=== PATIENT | male | born 1955 | race Caucasian/White ===

== ENCOUNTER → 2016-04-16 | Outpatient (CLI) | payer MEDICARE | LOC: M CARPUL 14:09 | PROVIDERS: ATTEND Nurse Practitioner Family | DX: J44.9 Chronic obstructive pulmonary disease, unspecified (principal) ==

== ENCOUNTER → 2016-09-12 | Outpatient (REF) | payer MEDICARE ==
[2016-09-12 17:23] LABS: BASO % 0.7 % (0.0-1.0); EOS # 0.3 K/mm3 (0.0-0.50); EOS % 3.7 % (0.0-3.0); LARGE UNSTAINED CELL # 0.1 K/mm3 (0.0-0.4); LARGE UNSTAINED CELL % 1.4 % (0.0-4.0); LYMPH % 27.7 % (24.0-44.0); MEAN CORPUSCULAR HEMOGLOBIN 33.9 pg (27.0-33.0); MEAN CORPUSCULAR HGB CONC 35.4 g/dl (32.0-36.5); MEAN CORPUSCULAR VOLUME 95.8 fl (80.0-96.0); MONO # 0.4 K/mm3 (0.0-0.8); MONO % 5.5 % (0.0-5.0); NEUTROPHILS # 4.5 K/mm3 (1.8-7.7); NEUTROPHILS % 60.9 % (36.0-66.0); PLATELET COUNT, AUTOMATED 255 k/mm3 (150-450); RED CELL DISTRIBUTION WIDTH 12.2 % (11.5-14.5); WHITE BLOOD COUNT 7.4 K/mm3 (4.0-10.0)
[2016-09-12 18:11] LABS: ALBUMIN 3.6 GM/DL (3.2-5.2); ALBUMIN/GLOBULIN RATIO 1.13 (1.00-1.93); ALKALINE PHOSPHATASE 94 U/L (45-117); ALT/SGPT 34 U/L (12-78); ANION GAP 9 MEQ/L (8-16); AST/SGOT 16 U/L (15-37); BILIRUBIN,TOTAL 0.4 MG/DL (0.2-1.0); BLOOD UREA NITROGEN 14 MG/DL (7-18); CALCIUM LEVEL 8.9 MG/DL (8.8-10.2); CARBON DIOXIDE LEVEL 26 MEQ/L (21-32); CHLORIDE LEVEL 107 MEQ/L (98-107); CHOLESTEROL LEVEL 143 MG/DL (<200); FREE T4 1.29 NG/DL (0.76-1.46); GLOMERULAR FILTRATION RATE > 60.0 (>49); GLUCOSE, FASTING 126 MG/DL (80-110); POTASSIUM SERUM 4.2 MEQ/L (3.5-5.1); SODIUM LEVEL 142 MEQ/L (136-145); TOTAL PROTEIN 6.8 GM/DL (6.4-8.2); TRIGLYCERIDES LEVEL 268 MG/DL (<150)
== END ==
LOC: M SFHCPLAZ 07:22
PROVIDERS: ATTEND Nurse Practitioner Family
DX: K21.9 Gastro-esophageal reflux disease without esophagitis (principal); R73.01 Impaired fasting glucose; E78.5 Hyperlipidemia, unspecified; E03.9 Hypothyroidism, unspecified

== ENCOUNTER → 2017-02-26 | Outpatient (REF) | payer MEDICARE ==
[2017-02-26 16:50] LABS: BASO # 0.1 10^3/uL (0.0-0.2); BASO % 0.5 % (0.0-1.0); EOS # 0.2 10^3/uL (0.0-0.50); EOS % 2.4 % (0.0-3.0); IMMATURE GRANULOCYTE % 0.4 % (0-0); LYMPH # 2.3 10^3/uL (1.5-4.5); LYMPH % 23.8 % (24.0-44.0); MEAN CORPUSCULAR HEMOGLOBIN 31.6 pg (27.0-33.0); MEAN CORPUSCULAR HGB CONC 33.5 g/dl (32.0-36.5); MEAN CORPUSCULAR VOLUME 94.1 fl (80.0-96.0); MONO # 0.7 10^3/uL (0.0-0.8); MONO % 6.9 % (0.0-5.0); NEUTROPHILS # 6.2 10^3/uL (1.8-7.7); PLATELET COUNT, AUTOMATED 280 10^3/uL (150-450); RED CELL DISTRIBUTION WIDTH 12.1 % (11.5-14.5); WHITE BLOOD COUNT 9.4 10^3/uL (4.0-10.0)
[2017-02-26 17:55] LABS: ALBUMIN 3.9 GM/DL (3.2-5.2); ALKALINE PHOSPHATASE 89 U/L (45-117); ALT/SGPT 26 U/L (12-78); ANION GAP 11 MEQ/L (8-16); AST/SGOT 17 U/L (7-37); BILIRUBIN,TOTAL 0.5 MG/DL (0.2-1.0); BLOOD UREA NITROGEN 15 MG/DL (7-18); CALCIUM LEVEL 9.2 MG/DL (8.8-10.2); CARBON DIOXIDE LEVEL 27 MEQ/L (21-32); CHLORIDE LEVEL 105 MEQ/L (98-107); CHOLESTEROL LEVEL 164 MG/DL (<200); CREATININE FOR GFR 0.92 MG/DL (0.70-1.30); FREE T4 1.32 NG/DL (0.76-1.46); GLOMERULAR FILTRATION RATE > 60.0 (>49); GLUCOSE, FASTING 134 MG/DL (80-110); POTASSIUM SERUM 4.2 MEQ/L (3.5-5.1); SODIUM LEVEL 143 MEQ/L (136-145); TOTAL PROTEIN 6.9 GM/DL (6.4-8.2); TRIGLYCERIDES LEVEL 250 MG/DL (<150)
== END ==
LOC: M SFHCCAPE 09:16
PROVIDERS: ATTEND Physician Assistant
DX: J44.9 Chronic obstructive pulmonary disease, unspecified (principal); I10 Essential (primary) hypertension; E03.9 Hypothyroidism, unspecified; E78.5 Hyperlipidemia, unspecified; R91.1 Solitary pulmonary nodule; N40.0 Benign prostatic hyperplasia without lower urinary tract symptoms; F41.9 Anxiety disorder, unspecified; K21.9 Gastro-esophageal reflux disease without esophagitis; M54.5 Low back pain; R73.01 Impaired fasting glucose

== ENCOUNTER → 2017-07-23 | Outpatient (CLI) | payer MEDICARE | LOC: M CLY 09:38 | DX: R06.09 Other forms of dyspnea (principal) | CPT/HCPCS: G0463 ==

== ENCOUNTER → 2017-08-25 | Outpatient (CLI) | payer MEDICARE | LOC: M RAD 10:19 | DX: Z12.2 Encounter for screening for malignant neoplasm of respiratory organs (principal); R91.8 Other nonspecific abnormal finding of lung field; Z87.891 Personal history of nicotine dependence | CPT/HCPCS: G0297 ==

== ENCOUNTER → 2018-02-03 | Outpatient (CLI) | payer MEDICARE ==
[~2018-02-03] MED LIST: METHACHOLINE KIT (J7674) INH
== END ==
LOC: M CARPUL 10:42
DX: R06.00 Dyspnea, unspecified (principal)
CPT/HCPCS: J7674

== ENCOUNTER → 2018-05-13 | Outpatient (REF) | payer MEDICARE ==
[2018-05-13 16:34] LABS: BASO # 0.1 10^3/uL (0.0-0.2); BASO % 0.5 % (0.0-1.0); EOS # 0.3 10^3/uL (0.0-0.50); EOS % 3.3 % (0.0-3.0); HEMATOCRIT 49.2 % (42.0-52.0); HEMOGLOBIN 16.8 g/dl (13.5-17.5); LYMPH # 2.5 10^3/uL (1.5-4.5); LYMPH % 24.6 % (24.0-44.0); MEAN CORPUSCULAR HEMOGLOBIN 32.2 pg (27.0-33.0); MEAN CORPUSCULAR HGB CONC 34.1 g/dl (32.0-36.5); MEAN CORPUSCULAR VOLUME 94.3 fl (80.0-96.0); MONO # 0.7 10^3/uL (0.0-0.8); MONO % 6.8 % (0.0-5.0); NEUTROPHILS # 6.4 10^3/uL (1.8-7.7); NEUTROPHILS % 64.3 % (36.0-66.0); PLATELET COUNT, AUTOMATED 310 10^3/uL (150-450); RED BLOOD COUNT 5.22 10^6/uL (4.30-6.10); WHITE BLOOD COUNT 9.9 10^3/uL (4.0-10.0)
[2018-05-13 16:57] LABS: HEMOGLOBIN A1c 6.7 %
[2018-05-13 17:07] LABS: ALBUMIN 3.9 GM/DL (3.2-5.2); ALT/SGPT 31 U/L (12-78); BILIRUBIN,TOTAL 0.5 MG/DL (0.2-1.0); BLOOD UREA NITROGEN 12 MG/DL (7-18); CALCIUM LEVEL 8.6 MG/DL (8.8-10.2); CARBON DIOXIDE LEVEL 27 MEQ/L (21-32); CHLORIDE LEVEL 105 MEQ/L (98-107); CHOLESTEROL LEVEL 145 MG/DL (<200); CHOLESTEROL RISK RATIO 4.264 (<5); CREATININE FOR GFR 0.92 MG/DL (0.70-1.30); FREE T4 1.38 NG/DL (0.76-1.46); GLOMERULAR FILTRATION RATE > 60.0 (>49); GLUCOSE, FASTING 107 MG/DL (70-100); HDL CHOLESTEROL 34 MG/DL (>40); LDL CHOLESTEROL 61 MG/DL (<100); NON-HDL-C 111 MG/DL; POTASSIUM SERUM 4.2 MEQ/L (3.5-5.1); SODIUM LEVEL 140 MEQ/L (136-145); THYROID STIMULATING HORMONE 0.845 uIU/ML (0.358-3.740); TOTAL PROTEIN 7.1 GM/DL (6.4-8.2); TRIGLYCERIDES LEVEL 248 MG/DL (<150)
== END ==
LOC: M SFHCCAPE 09:48
PROVIDERS: ATTEND Physician Assistant
DX: E78.5 Hyperlipidemia, unspecified (principal); E03.9 Hypothyroidism, unspecified; R73.01 Impaired fasting glucose; N40.0 Benign prostatic hyperplasia without lower urinary tract symptoms
CPT/HCPCS: 80053; 80061; 83036; 84439; 84443; 85025; G0103

== ENCOUNTER → 2018-08-25 | Outpatient (REF) | payer MEDICARE ==
[2018-08-25 17:20] LABS: ALBUMIN 3.5 GM/DL (3.2-5.2); ALT/SGPT 28 U/L (12-78); BILIRUBIN,TOTAL 0.7 MG/DL (0.2-1.0); BLOOD UREA NITROGEN 13 MG/DL (7-18); CALCIUM LEVEL 8.7 MG/DL (8.8-10.2); CARBON DIOXIDE LEVEL 24 MEQ/L (21-32); CHLORIDE LEVEL 106 MEQ/L (98-107); CHOLESTEROL LEVEL 129 MG/DL (<200); CHOLESTEROL RISK RATIO 4.448 (<5); CREATININE FOR GFR 0.96 MG/DL (0.70-1.30); FREE T4 1.49 NG/DL (0.76-1.46); GLOMERULAR FILTRATION RATE > 60.0 (>49); GLUCOSE, FASTING 139 MG/DL (70-100); HDL CHOLESTEROL 29 MG/DL (>40); LDL CHOLESTEROL 42 MG/DL (<100); NON-HDL-C 100 MG/DL; POTASSIUM SERUM 3.8 MEQ/L (3.5-5.1); SODIUM LEVEL 140 MEQ/L (136-145); TOTAL PROTEIN 7.1 GM/DL (6.4-8.2); TRIGLYCERIDES LEVEL 292 MG/DL (<150)
[2018-08-25 17:36] LABS: MALB URINE SIEMENS 47.3 MG/L; MAU/CREAT RATIO 16.9 MCG/MG (0.0-30.0)
== END ==
LOC: M SFHCCAPE 07:25
PROVIDERS: ATTEND Physician Assistant
DX: I10 Essential (primary) hypertension (principal); E03.9 Hypothyroidism, unspecified; E11.69 Type 2 diabetes mellitus with other specified complication; E78.5 Hyperlipidemia, unspecified

== ENCOUNTER → 2018-12-23 | Outpatient (REF) | payer MEDICARE ==
[2018-12-23 16:53] LABS: BASO # 0.1 10^3/uL (0.0-0.2); BASO % 0.7 % (0.0-1.0); EOS # 0.3 10^3/uL (0.0-0.5); EOS % 3.3 % (0.0-3.0); HEMATOCRIT 47.7 % (42.0-52.0); HEMOGLOBIN 16.1 g/dl (13.5-17.5); LYMPH # 1.9 10^3/uL (1.5-5.0); LYMPH % 21.3 % (24.0-44.0); MEAN CORPUSCULAR HEMOGLOBIN 32.6 pg (27.0-33.0); MEAN CORPUSCULAR HGB CONC 33.8 g/dl (32.0-36.5); MEAN CORPUSCULAR VOLUME 96.6 fl (80.0-96.0); MONO # 0.7 10^3/uL (0.0-0.8); MONO % 7.6 % (0.0-5.0); NEUTROPHILS % 66.7 % (36.0-66.0); PLATELET COUNT, AUTOMATED 264 10^3/uL (150-450); RED BLOOD COUNT 4.94 10^6/uL (4.30-6.10); WHITE BLOOD COUNT 9.1 10^3/uL (4.0-10.0)
[2018-12-23 17:04] LABS: ALBUMIN 3.7 GM/DL (3.2-5.2); ALT/SGPT 25 U/L (12-78); BILIRUBIN,TOTAL 0.6 MG/DL (0.2-1.0); BLOOD UREA NITROGEN 16 MG/DL (7-18); CALCIUM LEVEL 8.9 MG/DL (8.8-10.2); CARBON DIOXIDE LEVEL 27 MEQ/L (21-32); CHLORIDE LEVEL 105 MEQ/L (98-107); CHOLESTEROL LEVEL 138 MG/DL (<200); CHOLESTEROL RISK RATIO 4.058 (<5); CREATININE FOR GFR 0.95 MG/DL (0.70-1.30); FREE T4 1.24 NG/DL (0.76-1.46); GLOMERULAR FILTRATION RATE > 60.0 (>49); GLUCOSE, FASTING 140 MG/DL (70-100); HDL CHOLESTEROL 34 MG/DL (>40); LDL CHOLESTEROL 54 MG/DL (<100); NON-HDL-C 104 MG/DL; POTASSIUM SERUM 4.2 MEQ/L (3.5-5.1); SODIUM LEVEL 141 MEQ/L (136-145); TOTAL PROTEIN 6.9 GM/DL (6.4-8.2); TRIGLYCERIDES LEVEL 248 MG/DL (<150)
== END ==
LOC: M SFHCCAPE 08:12
PROVIDERS: ATTEND Physician Assistant
DX: E78.5 Hyperlipidemia, unspecified (principal); E03.9 Hypothyroidism, unspecified; E11.69 Type 2 diabetes mellitus with other specified complication

== ENCOUNTER → 2019-02-17 | Outpatient (CLI) | payer MEDICARE ==
--- NOTE | 2019-02-18 13:23 | REP ---
Clinical: Lung screening. History smoking. Comparison: 08/25/2017 Technique: Axial low-dose noncontrast images from the thoracic inlet to the upper abdomen using lung screening technique. Findings: The lung garcia demonstrate stable chronic changes including moderate subpleural fibrosis and areas of scarring. 4 mm density inseparable from the left major fissure remain stable and likely represents focal scar. Small calcified subpleural granulomas are also identified and stable. No acute nodule or mass lesion. No consolidation. No effusion. No pneumothorax. Stable precarinal and paratracheal lymph nodes again identified. Impression: 1. Stable Lung-RAD II examination. Management recommendations include annual low-dose CT evaluation. Impression: Lung-RADS category I. No nodule or suspicious abnormality. Electronically Signed by Kevin Bautista MD 02/18/2019 01:16 P
== END ==
LOC: M RAD 10:08
PROVIDERS: ATTEND Physician Assistant
DX: Z12.2 Encounter for screening for malignant neoplasm of respiratory organs (principal); Z87.891 Personal history of nicotine dependence

== ENCOUNTER → 2019-05-31 | Outpatient (REF) | payer MEDICARE ==
[2019-05-31 16:20] LABS: BASO # 0.1 10^3/uL (0.0-0.2); BASO % 0.5 % (0.0-1.0); EOS # 0.5 10^3/uL (0.0-0.5); EOS % 5.1 % (0.0-3.0); HEMATOCRIT 50.3 % (42.0-52.0); HEMOGLOBIN 16.7 g/dl (13.5-17.5); LYMPH # 2.4 10^3/uL (1.5-5.0); LYMPH % 23.8 % (24.0-44.0); MEAN CORPUSCULAR HEMOGLOBIN 31.4 pg (27.0-33.0); MEAN CORPUSCULAR HGB CONC 33.2 g/dl (32.0-36.5); MEAN CORPUSCULAR VOLUME 94.5 fl (80.0-96.0); MONO # 0.7 10^3/uL (0.0-0.8); NEUTROPHILS # 6.3 10^3/uL (1.5-8.5); NEUTROPHILS % 63.2 % (36.0-66.0); PLATELET COUNT, AUTOMATED 310 10^3/uL (150-450); RED BLOOD COUNT 5.32 10^6/uL (4.30-6.10)
[2019-05-31 16:31] LABS: ALT/SGPT 30 U/L (12-78); BILIRUBIN,TOTAL 0.6 MG/DL (0.2-1.0); BLOOD UREA NITROGEN 12 MG/DL (7-18); CALCIUM LEVEL 8.9 MG/DL (8.8-10.2); CARBON DIOXIDE LEVEL 29 MEQ/L (21-32); CHLORIDE LEVEL 107 MEQ/L (98-107); CHOLESTEROL LEVEL 150 MG/DL (<200); CHOLESTEROL RISK RATIO 4.411 (<5); CREATININE FOR GFR 1.02 MG/DL (0.70-1.30); FREE T4 1.24 NG/DL (0.76-1.46); GLOMERULAR FILTRATION RATE > 60.0 (>49); GLUCOSE, FASTING 128 MG/DL (70-100); HDL CHOLESTEROL 34 MG/DL (>40); LDL CHOLESTEROL 59 MG/DL (<100); NON-HDL-C 116 MG/DL; SODIUM LEVEL 141 MEQ/L (136-145); TOTAL PROTEIN 7.2 GM/DL (6.4-8.2); TRIGLYCERIDES LEVEL 283 MG/DL (<150)
[2019-05-31 16:42] LABS: HEMOGLOBIN A1c 6.4 %
[2019-05-31 16:59] LABS: MALB URINE SIEMENS 23.9 MG/L
== END ==
LOC: M SFHCCAPE 08:40
PROVIDERS: ATTEND Physician Assistant
DX: R73.01 Impaired fasting glucose (principal); E78.5 Hyperlipidemia, unspecified; E03.9 Hypothyroidism, unspecified

== ENCOUNTER → 2019-06-08 | Outpatient (CLI) | payer MEDICARE ==
--- NOTE | 2019-06-08 10:59 | REP ---
Right hip series: Two views. History: Right hip pain. Findings: AP and frog-leg views of the right hip show smooth rounded femoral head and intact hip joint space. Periarticular soft tissues are unremarkable. No bony erosive or destructive lesion. Impression: Negative right hip radiographs. Electronically Signed by Bam Stoddard MD 06/08/2019 10:50 A
--- NOTE | 2019-06-08 11:01 | REP ---
Lumbar spine series: Five views. History: Low back pain. Findings: Lumbar vertebral body heights are preserved. Alignment is normal. There is diffuse degenerative disc disease with discogenic spurring at each level. Disc spaces are preserved except at L1-2 where there is disc space narrowing. Vascular calcification is noted in a normal caliber aorta and iliac vessels. There is no evidence of spondylolysis or spondylolisthesis. There is some SI joint sclerosis bilaterally at L5-S1. Sacrum and SI joints are intact. Psoas margins are symmetric. Impression: Diffuse degenerative spondylosis changes. Osteoarthritic facet changes at L5-S1 bilaterally. Fairly prominent vascular calcification. Electronically Signed by Bam Stoddard MD 06/08/2019 05:44 P
== END ==
LOC: M CLY 10:11
PROVIDERS: ATTEND Physician Assistant
DX: M54.5 Low back pain (principal); M25.551 Pain in right hip; M47.816 Spondylosis without myelopathy or radiculopathy, lumbar region; M51.37 Other intervertebral disc degeneration, lumbosacral region

== ENCOUNTER → 2019-08-20 | Outpatient (REF) | payer MEDICARE ==
[2019-08-20 13:32] LABS: APPEARANCE, URINE HAZY (CLEAR); BACTERIA, URINE AUTO NEGATIVE (NEGATIVE); BILIRUBIN, URINE AUTO NEGATIVE (NEGATIVE); BLOOD, URINE BLOOD NEGATIVE (NEGATIVE); COLOR, URINE YELLOW (YELLOW); GLUCOSE, URINE (UA) AUTO NEGATIVE (NEGATIVE); KETONE, URINE AUTO NEGATIVE (NEGATIVE); LEUKOCYTE ESTERASE, URINE AUTO NEGATIVE (NEGATIVE); NITRITE, URINE AUTO NEGATIVE (NEGATIVE); PROTEIN, URINE AUTO NEGATIVE (NEGATIVE); RBC, URINE AUTO 2 /HPF (0-3); SPECIFIC GRAVITY URINE AUTO 1.019 (1.002-1.035); SQUAMOUS EPITHELIAL CELL UR AU 0 /HPF (0-6); UROBILINOGEN, URINE AUTO 0.2 mg/dL (0.0-2.0); WBC, URINE AUTO 2 /HPF (0-3)
== END ==
LOC: M SMT 13:07
PROVIDERS: ATTEND Nurse Practitioner Family
DX: R35.0 Frequency of micturition (principal)

== ENCOUNTER → 2019-09-10 | Outpatient (CLI) | payer MEDICARE ==
--- NOTE | 2019-09-11 07:58 | REP ---
BILATERAL LOWER EXTREMITY DUPLEX DOPPLER ARTERIAL ULTRASOUND: Real-time ultrasound evaluation and duplex Doppler interrogation of bilateral lower extremity arterial systems is performed. PUNEET right is 1.0 and left 1.1. There is mild scattered plaquing diffusely bilaterally. There is no duplex Doppler sonographic evidence of significant stenosis bilaterally. Triphasic waveforms are seen diffusely bilaterally. There are biphasic waveforms in the profunda bilaterally. PEAK SYSTOLIC VELOCITY RIGHT LEFT Common femoral artery 159.5 cm/s 131.6 cm/s Profunda 128.5 161.9 SFA 132.3 137.8 Popliteal 71.9 72.6 Proximal STEVIE 58.7 42.6 Tibial/peroneal trunk 73.8 41.0 Proximal GOLD LEAF LAYER 61.6 48.3 Distal GOLD LEAF LAYER 87.8 80.5 Distal STEVIE 79.9 54.1 Electronically Signed by Natalio Garrett MD 09/11/2019 09:31 P
== END ==
LOC: M RAD 12:56
PROVIDERS: ATTEND Physician Assistant
DX: I70.203 Unspecified atherosclerosis of native arteries of extremities, bilateral legs (principal)

== ENCOUNTER → 2019-12-08 | Outpatient (REF) | payer MEDICARE ==
[2019-12-08 14:48] LABS: ALBUMIN 3.8 GM/DL (3.2-5.2); ALT/SGPT 26 U/L (12-78); BILIRUBIN,TOTAL 0.4 MG/DL (0.2-1.0); BLOOD UREA NITROGEN 15 MG/DL (7-18); CARBON DIOXIDE LEVEL 27 MEQ/L (21-32); CHLORIDE LEVEL 107 MEQ/L (98-107); CHOLESTEROL LEVEL 124 MG/DL (<200); CHOLESTEROL RISK RATIO 3.757 (<5); CREATININE FOR GFR 0.87 MG/DL (0.70-1.30); GLOMERULAR FILTRATION RATE > 60.0 (>49); GLUCOSE, FASTING 117 MG/DL (70-100); HDL CHOLESTEROL 33 MG/DL (>40); LDL CHOLESTEROL 55 MG/DL (<100); NON-HDL-C 91 MG/DL; POTASSIUM SERUM 4.8 MEQ/L (3.5-5.1); PROSTATIC SPECIFIC AG MONITOR 2.11 NG/ML (< 4.00); SODIUM LEVEL 141 MEQ/L (136-145); TOTAL PROTEIN 6.9 GM/DL (6.4-8.2); TRIGLYCERIDES LEVEL 180 MG/DL (<150)
[2019-12-08 15:36] LABS: HEMOGLOBIN A1c 6.2 %
== END ==
LOC: M LABDRAWC 09:15
PROVIDERS: ATTEND Physician Assistant
DX: I10 Essential (primary) hypertension (principal); Z12.5 Encounter for screening for malignant neoplasm of prostate; N40.0 Benign prostatic hyperplasia without lower urinary tract symptoms; Z79.899 Other long term (current) drug therapy

== ENCOUNTER → 2020-01-18 | Outpatient (CLI) | payer MEDICARE ==
--- NOTE | 2020-01-21 16:18 | REP ---
BILATERAL DIAGNOSTIC MAMMOGRAPHY WITH CAD, 3D TOMOGRAPHY, AND FOCUSED BILATERAL SUBAREOLAR SONOGRAPHY HISTORY: Pain in the right breast. Subareolar lump in the right breast the size of a time present x6 weeks. Positive family history of breast carcinoma. COMPARISON BREAST IMAGING: None. TECHNIQUE: Routine views of each breast are obtained. A skin marker is affixed to the skin at the site of the palpable lump in the right breast, which projects in the upper outer quadrant anteriorly. Magnified focal spot compression true ML and CC views of the right breast are obtained. FINDINGS: There is a mild pattern of non-mass like subareolar fibroglandular tissue in the breasts bilaterally, right more so than left, consistent with gynecomastia. No spiculation, mass, architectural distortion, or skin thickening is seen. SONOGRAPHIC FINDINGS: Bilateral subareolar sonography demonstrates hypoechoic tissue in the retroareolar region on the right corresponding to the area of the palpable lump consistent with fibroglandular tissue. This area measures 9 mm in greatest diameter. Retroareolar scanning on the left shows minimal hypoechoic changes much less prominent. IMPRESSION: BI-RADS Category 2 benign findings. Gynecomastia pattern right breast and to a much lesser extent left subareolar region. Clinical follow-up is advised. BIRADS 2: BI-RADS/ACR category 2 mammogram. Benign findings. 3M patient letter: Male letter M2. Patient reports his clinical breast exam date as 01/17/2020. This mammogram was interpreted with the aid of an FDA approved computer-aided detection device. MERARI
== END ==
LOC: M WHC 07:52
PROVIDERS: ATTEND Physician Assistant
DX: N64.4 Mastodynia (principal); N63.41 Unspecified lump in right breast, subareolar; N62 Hypertrophy of breast
CPT/HCPCS: 76642; 77066; G0279

== ENCOUNTER → 2020-02-28 | Outpatient (REF) | payer MEDICARE | LOC: M PLALAB 12:23 | PROVIDERS: ATTEND Surgery | DX: N62 Hypertrophy of breast (principal) ==

== ENCOUNTER → 2020-08-30 | Outpatient (CLI) | payer MEDICARE ==
--- NOTE | 2020-08-30 16:10 | REP ---
INDICATION: SCREENING FOR LUNG CA. COMPARISON: 02/17/2019. TECHNIQUE: Low dose screening CT chest performed without the use of intravenous contrast. FINDINGS: Lungs: There is moderate diffuse interstitial fibrosis again noted unchanged. No new suspicious nodule is seen. There is scattered tiny calcified granulomas in the right lung. Heart: Not enlarged. Thoracic aorta: No aneurysm. Visualized osseous structures: Unremarkable. IMPRESSION: Category 1 negative low dose noncontrast CT chest. Stable interstitial fibrotic changes. Recommend follow-up exam in 1 year. <Electronically signed by Natalio Garrett > 08/30/20 [id number]
== END ==
LOC: M RAD 13:30
PROVIDERS: ATTEND Physician Assistant
DX: J84.10 Pulmonary fibrosis, unspecified (principal); Z12.2 Encounter for screening for malignant neoplasm of respiratory organs; Z87.891 Personal history of nicotine dependence

== ENCOUNTER → 2021-01-29 | Outpatient (CLI) | payer MEDICARE ==
[~2021-01-29] MED LIST changes: +ASPI81TA26 PO; +BUSP15TA47 PO; +FLOM0.4C39 PO; +FLUO20CA22 PO; +FLUO40CA PO; +GABA600T4 PO; +LEVO25TA5 PO; +LISI-898 PO; -METHACHOLINE KIT (J7674) INH; +MULT1TAB7 PO; +PANT40TA29 PO; +ROSU20TA5 PO; +VERA180T50 PO
== END ==
LOC: M LABSMTC 09:52
PROVIDERS: ATTEND Anesthesiology
DX: Z01.812 Encounter for preprocedural laboratory examination (principal); Z20.822 Contact with and (suspected) exposure to COVID-19

== ENCOUNTER 2021-02-02 10:51 | Day surgery (SDC) | payer MEDICARE ==
[~2021-02-02] VITALS: Ht 177.8 cm; Wt 90.3 kg
[~2021-02-02 10:51] MED LIST changes: +NS 1,000 ML IV ONE; +VERA180T42 PO; -VERA180T50 PO
--- OUTSIDE RECORDS SUMMARY | 2021-02-02 10:58 | CCD ---
Author Author [facility] Organization [facility] Address Unknown Phone Unavailable Care Team Providers Care Wire Brusher Name Role Phone Agapito Barger Unavailable PROBLEMS ALLERGIES No Known Allergies ENCOUNTERS from 1955 to 2020-11-08 IMMUNIZATIONS SOCIAL HISTORY REASON FOR REFERRAL No Information VITAL SIGNS MEDICATIONS PROCEDURES from 1955 to 2020-11-08 RESULTS No Results REASON FOR VISIT MEDICAL (GENERAL) HISTORY Goals Section Health Concerns MEDICAL EQUIPMENT No Information MENTAL STATUS FUNCTIONAL STATUS ASSESSMENTS PLAN OF TREATMENT Insurance Providers
--- OUTSIDE RECORDS SUMMARY | 2021-02-02 10:58 | CCD ---
Author Author [facility] Organization [facility] Address Unknown Phone Unavailable Care Team Providers Care Senior Pensions Administrator Name Role Phone Catherine Lynch Unavailable PROBLEMS Type Condition ICD9-CM Code [id number] Code Onset Dates Condition S tatus W/U Status Risk SNOMED Code Notes Problem HTN (hypertension) I10 Active confirmed 3 7089067 Problem Anxiety F41.9 Active confirmed 00988966 Problem Enlarged prostate without lower urinary tract symptoms N40.0 Active confirmed 673671949 Problem Impaired fasting glucose R73.01 Active confirmed 012865798 Problem Gastroesophageal reflux disease, esophagitis pre sence not specified K21.9 Active confirmed 121759662 Problem Chronic obstructive pulmonary disease, unspecified COPD ty pe J44.9 Active confirmed 91491157 Problem COPD (chronic obstructive pulmonary disease) wit h acute bronchitis J44.0 Active confirmed 348300907038763 Problem Hyperlipidemia E78.5 Active confirmed 87545 004 Problem Pulmonary nodule less than 6 cm determined by computed tomography of lung R91.1 Active confirmed 740903172 Problem Chronic obstructive pulmonar y disease with acute lower respiratory infection J44.0 Active confirmed 050269024 Problem Obesity, unspecified E66.9 Active confirmed 333897011 Problem Type 2 diabetes mellitus with other specified complication E11.69 Active confirmed 67497503 Problem Benign prostatic hyperplasia , unspecified whether lower urinary tract symptoms present N40.0 Active confirmed 355001879 Problem Pulmonary nodule seen on imaging study R91.1 A ctive confirmed 772108562 Problem Diabetes E11.9 Active confirmed 89430973 Problem Basal cell carcinoma (BCC) of left side of nose C4 4.311 Active confirmed 493068943 Problem Pulmonary nodule R91.1 Active confirmed 309 208671 Problem Hypothyroid E03.9 Active confirmed 29560816 Problem GERD (gastroesophageal reflux disease) K21.9 A ctive confirmed 283948529 Problem Benign prostatic hyperplasia with lower urinary tract symptoms N40.1 Active confirmed 291362080 Problem Other obstructive and reflux uropathy N13.8 Ac tive confirmed 93761561 Problem Atherosclerosis of other arteries I70.8 Active con firmed 52432692 Problem Atherosclerosis of aorta I70.0 Active confirmed 300767602 ALLERGIES No Known Allergies ENCOUNTERS from 1955 to 2020-11-23 Encounter Location Date Provider Diagnosis [address] [place] [address] 11 Nov, 2020 Catherineaugust Lynch Anxiety F41.9 ; HTN (hypertension) I10 ; Benign prostatic hyperplasia with lower urinary tract symptoms N40.1 ; Hyperlipidemia E78.5 ; Gastroesophageal reflux disease, esophagitis presence not specified K21.9 ; Hypothyroid E03.9 and Right hip pain M25.551 IMMUNIZATIONS Vaccine Route Administration Date Status Pneumococcal 0.5mL Prevnar 13 IM Intramuscular May 13, 2018 A dministered TD Adult 0.5mL Tetanus IM Intramuscular May 13, 2018 Administ ered Influenza 6mo & up Fluzone Unknown Mar 18, 2016 Other s SOCIAL HISTORY Tobacco Use: Social History Observation Description Date Details (start date - stop date) Former Smoker Sex Assigned At : Social History Observation Description Sex Assigned At Unknown Education: Question Answer Notes Level of Education: College Associates degree in [employer] technology Audit Question Answer Notes Total Score: 1 Interpretation: Alcohol Education Language: Question Answer Notes Languages spoken: Romansh Buddhism: Question Answer Notes Buddhism 33 None Sexual Hx: Question Answer Notes Had sex in the last 12 months (vaginal, oral, or anal)? Yes Have you ever had an STD? No with Women only Use protection? No Drug and Alcohol Question Answer Notes Total Score: 0 Interpretation: No problems reported BMI Care Goal Follow-Up Question Answer Notes Above Normal BMI Follow-Up Lifestyle education regarding t Tobacco Use: Question Answer Notes Are you a: former smoker How long has it been since you last smoked? 5-10 years REASON FOR REFERRAL No Information VITAL SIGNS No information MEDICATIONS Medication SIG (Take, Route, Frequency, Duration) Notes Start Da te End Date Status Aspirin 81 MG 1 tablet Orally Once a day Active Lisinopril 5 MG 1 tablet Orally Once a day for 90 days Active Verapamil HCl ER 180 MG 1 tablet every morning with food Orally Once a day for 90 days Active busPIRone HCl 15 MG 1 tablet Orally once daily for 90 days Active Fluoxetine HCl 20 MG 1 tablet Orally three times daily for 90 days Active Levothyroxine Sodium 25 MCG 1 tablet on an empty stoma ch in the morning Orally Once a day for 90 days Active Rosuvastatin Calcium 20 MG 1 capsule Orally Once a day Not-Taking Flomax 0.4 MG 1 capsule 30 minutes after t he same meal each day Orally Once a day for 90 days Active Gabapentin 600 MG 1 capsule Orally Three times a day for 90 days Jul, Active Pantoprazole Sodium 40 MG 1 cap Orally Daily for 90 days 2 August, Active Centrum Silver 50+Men Act mer Cephalexin 500 MG 1 capsule Orally every 12 hrs for 10 day(s) Oct, Active Crestor 20 MG 1 tablet Orally Once a day for 90 days Active PROCEDURES No Information RESULTS No Results REASON FOR VISIT Refills MEDICAL (GENERAL) HISTORY Type Description Date Medical History kidney stones Medical History mitral valve prolapse Medical History colon polyp Medical History Esophageal reflux Medical History Elevated Cholesterol Medical History Hypothyroidism Medical History depressionn with anxiety Medical History Impaired fasting glucose Medical History Pulmonary nodule. Repeat low dose CT scn due 02/2017 Surgical History VARICOCELE B/L 1984 Surgical History colon polyp removal 1977 Surgical History colonoscopy-Dr. Floyd 2007 Surgical History colonoscopy - Dr. Chaudhary: Polyp removal F/u 3-5 years 2016 Goals Section No Information Health Concerns No Information MEDICAL EQUIPMENT No Information MENTAL STATUS No Information FUNCTIONAL STATUS No Information ASSESSMENTS Encounter Date Diagnosis Assessment Notes Treatment Notes Treatm ent Clinical Notes Nov, Anxiety (ICD-10 - F41.9) Nov, HTN (hypertension) (ICD-10 - I10) Nov, Benign prostatic hyperplasia with lower urinary tract symptoms (ICD-10 - N40.1) Nov, Hyperlipidemia (ICD-10 - E78.5) Nov, Gastroesophageal reflux dise ase, esophagitis presence not specified (ICD-10 - K21.9) Nov, Hypothyroid (ICD-10 - E03.9) Nov, Right hip pain (ICD-10 - M25.551) PLAN OF TREATMENT Medication Medication Name Sig Start Date Stop Date Fluoxetine HCl 20 MG 1 tablet Orally three times daily for 90 da ys Cephalexin 500 MG 1 capsule Orally every 12 hrs for 10 day(s) Oct, busPIRone HCl 15 MG 1 tablet Orally once daily for 90 days Verapamil HCl ER 180 MG 1 tablet every morning with food Orally Once a day for 90 days Gabapentin 600 MG 1 capsule Orally Three times a day for 90 days Jul, Levothyroxine Sodium 25 MCG 1 tablet on an empty stoma ch in the morning Orally Once a day for 90 days Flomax 0.4 MG 1 capsule 30 minutes after t he same meal each day Orally Once a day for 90 days Lisinopril 5 MG 1 tablet Orally Once a day for 90 days Pantoprazole Sodium 40 MG 1 cap Orally Daily for 90 days August, Crestor 20 MG 1 tablet Orally Once a day for 90 days Insurance Providers Payer Name Payer Address Payer Phone Insured Name Patient Relati onship to Insured Coverage Start Date Coverage End Date AETNA MEDICARE AETNA [employer] [address] [facility] [id number] JASVIR BELTRÁN self
--- OUTSIDE RECORDS SUMMARY | 2021-02-02 10:58 | CCD ---
Author Author [facility] Organization [facility] Address Unknown Phone Unavailable Care Team Providers Care Clinical Education Manager Name Role Phone Agapito Barger Unavailable PROBLEMS Type Condition ICD9-CM Code [id number] Code Onset Dates Condition S tatus W/U Status Risk SNOMED Code Notes Problem HTN (hypertension) I10 Active confirmed 3 5731376 Problem Anxiety F41.9 Active confirmed 60581531 Problem Enlarged prostate without lower urinary tract symptoms N40.0 Active confirmed 265589746 Problem Impaired fasting glucose R73.01 Active confirmed 276070970 Problem Gastroesophageal reflux disease, esophagitis pre sence not specified K21.9 Active confirmed 253952806 Problem Chronic obstructive pulmonary disease, unspecified COPD ty pe J44.9 Active confirmed 94310790 Problem COPD (chronic obstructive pulmonary disease) wit h acute bronchitis J44.0 Active confirmed [id number] Problem Hyperlipidemia E78.5 Active confirmed 59946 004 Problem Pulmonary nodule less than 6 cm determined by computed tomography of lung R91.1 Active confirmed 992028351 Problem Chronic obstructive pulmonar y disease with acute lower respiratory infection J44.0 Active confirmed 777619043 Problem Obesity, unspecified E66.9 Active confirmed 969205942 Problem Type 2 diabetes mellitus with other specified complication E11.69 Active confirmed 45769915 Problem Benign prostatic hyperplasia , unspecified whether lower urinary tract symptoms present N40.0 Active confirmed 312657818 Problem Pulmonary nodule seen on imaging study R91.1 A ctive confirmed 362901588 Problem Diabetes E11.9 Active confirmed 97531874 Problem Basal cell carcinoma (BCC) of left side of nose C4 4.311 Active confirmed 647174661 Problem Pulmonary nodule R91.1 Active confirmed 309 501884 Problem Hypothyroid E03.9 Active confirmed 63253846 Problem GERD (gastroesophageal reflux disease) K21.9 A ctive confirmed 812585957 Problem Benign prostatic hyperplasia with lower urinary tract symptoms N40.1 Active confirmed 453616933 Problem Other obstructive and reflux uropathy N13.8 Ac tive confirmed 11563684 Problem Atherosclerosis of other arteries I70.8 Active con firmed 07491442 Problem Atherosclerosis of aorta I70.0 Active confirmed 522576718 ALLERGIES No Known Allergies ENCOUNTERS from 1955 to 2020-11-03 Encounter Location Date Provider Diagnosis [facility] Dermatology [address] [phone] [place] [address] Oct, Agapitopiper Barger Basal cell carcinoma (BCC) o f left side of nose C44.311 IMMUNIZATIONS Vaccine Route Administration Date Status Pneumococcal [...] Level of Education: [employer] degree in [employer] technology Audit Question Answer Notes Total Score: 1 Interpretation: Alcohol Education Language: Question Answer Notes Languages spoken: Syriac Congregation: Question Answer Notes Congregation 33 None Sexual Hx: Question Answer Notes [...] REASON FOR REFERRAL No Information VITAL SIGNS Weight 205 lbs Oct, Height 70 in Oct, BMI 29.41 kg/m2 Oct, Blood pressure systolic 138 mm Hg Oct, Blood pressure diastolic 64 mm Hg Oct, MEDICATIONS Medication SIG (Take, Route, Frequency, Duration) Notes Start Da te End Date Status Verapamil HCl ER 180 MG 1 tablet every morning with food Orally Once a day for 90 Active Levothyroxine Sodium 25 MCG 1 tablet on an empty stoma ch in the morning Orally Once a day for 90 days Active Crestor 20 MG 1 tablet Orally Once a day for 90 days Active Pantoprazole Sodium 40 MG 1 cap Orally Daily for 90 days 2 August, Active Flomax 0.4 MG 1 capsule 30 minutes after t he same meal each day Orally Once a day for 90 days Active Rosuvastatin Calcium 20 MG 1 capsule Orally Once a day Not-Taking Aspirin 81 MG 1 tablet Orally Once a day Active Gabapentin 600 MG 1 capsule Orally Three times a day for 90 days Jul, Active busPIRone HCl 15 MG 1 tablet Orally once daily for 90 days Active Fluoxetine HCl 20 MG 1 tablet Orally three times daily for 90 Active Centrum Silver 50+Men Act mer Lisinopril 5 MG 1 tablet Orally Once a day for 90 days Active Cephalexin 500 MG 1 capsule Orally every 12 hrs for 10 day(s) Oct, Active PROCEDURES from 1955 to 2020-11-03 Procedure Date Ordered Result Body Site Med: Derm Lidocaine with Epinephrine Inj ection 1% with 2 ml sodium bicarbonate Intradermally to marked areas 2020-11-01 N/A RESULTS No Results REASON FOR VISIT BCC, left nose MEDICAL (GENERAL) HISTORY Type Description Date Medical [...] Dr. Chaudhary: Polyp removal F/u 3-5 years 2015 Goals Section No Information Health Concerns No Information MEDICAL EQUIPMENT No Information MENTAL STATUS No Information FUNCTIONAL STATUS No Information ASSESSMENTS Encounter Date Diagnosis Assessment Notes Treatment Notes Treatm ent Clinical Notes Oct, Basal cell carcinoma (BCC) of left side of nose (ICD-10 - C44.311) Very pleasant patient referred for surgical consultation, as above. The pathology report from the referring provider was reviewed and interpreted to ensure this case is appropriate for surgery by dermatologic surgeon, Agapito Barger MD. This interpretation was discussed with the patient. Referral photograph of the biopsy site was reviewed and verified with patient. Extensive discussion was performed with the patient regarding treatment options to include no treatment, chemotherapy, radiation therapy, and surgery, to include, whether Mohs Micrographic Surgery would be an appropriate treatment modality in this case. Discussed with patient surgical reconstruction options to include secondary intent, primary closure, skin flap, and skin graft. Risk Factors of Concern: Anticoagulant therapy: [ ] Artificial heart valve: [ ] Artificial joint within 2 years: [ ] Patient understands the risks and benefits and potential need for a flap or graft and would like to proceed with surgery at this time. Joseph protocol was followed in compliance with [facility] standards. Mohs Micrographic Surgeon operated in two distinct and integrated capacities as the surgeon and the pathologist. The areas was prepped with chlorhexidine. The tumor was visualized, compared against relevant records, and confirmed with the patient. The agreed upon area anesthetized with lidocaine 1% with epinephrine. Once anesthetized, the area was lightly curetted with a 3mm curette to better define tumor size. A 2mm rim of normal tissue was marked and an incision at a 45 degree angle following standard Mohs approach was performed and the specimen harvested as a microscopic controlled layer. Hemostasis was achieved with electrocautery. Estimated blood loss was 5mL.The specimen was oriented, chromacoded, mapped, and placed in 1 block. Each section was processed in the Mohs Laboratory using Mohs protocol and submitted for frozen section. Please see scanned Mohs map for appropriate use criteria score greater than or equal to 7 and pathology report. Frozen section analysis of the four quadrants showed the followin quadrants, 4 positive. Stage 2: Due to the positive margin(s), a second stage was performed. The areas was prepped with chlorhexidine. The tumor was visualized, compared against relevant records, and confirmed with the patient. The agreed upon area anesthetized with lidocaine 1% with epinephrine. Once anesthetized, the area was lightly curetted with a 3mm curette to better define tumor size. A 2mm rim of normal tissue was marked and an incision at a 45 degree angle following standard Mohs approach was performed and the specimen harvested as a microscopic controlled layer. Hemostasis was achieved with electrocautery. Estimated blood loss was 5mL.The specimen was oriented, chromacoded, mapped, and placed in 1 block. Each section was processed in the Mohs Laboratory using Mohs protocol and submitted for frozen section. Please see scanned Mohs map for appropriate use criteria score greater than or equal to 7 and pathology report. Frozen section analysis of the four quadrants showed the followin quadrants, 0 positive. , A medially based transposition flap was drawn around the tumor site defect with sterile marking pen. The entire area was infiltrated with 1% Xylocaine with 1:100,000 Epinephrine. The margins were incised as drawn to the level of the subcutaneous fat with a #15 blade, and the excess tissue was removed. Hemostasis was maintained with electrocautery. The flap and the lateral margins of the resulting defect were undermined at the level of the subcutaneous fat with blunt and sharp dissection. The flap was then raised and transposed into place. The goldman points, the flap, and the secondary wounds were closed with deep buried subcutaneous sutures of 5.0 monocryl. The wound edges were re-approximated with 6.0 prolene. A sterile dressing was applied and full wound care instructions were given to the patient including handouts and emergency contact information. The patient left the room in good condition and was instructed to follow up in 1 week. Final size: 1.7 x 1.7 - 2.89 sq cm PLAN OF TREATMENT Medication Medication Name Sig Start Date Stop Date Fluoxetine HCl 20 MG 1 tablet Orally three times daily for 90 Cephalexin 500 MG 1 capsule Orally every 12 hrs for 10 day(s) Oct, Verapamil HCl ER 180 MG 1 tablet every morning with food Orally Once a day for 90 Treatment Notes Assessment Notes Clinical Notes Basal cell carcinoma (BCC) of left side of nose Very pleasant patient referred for surgical consultation, as above. The pathology report from the referring provider was reviewed and interpreted to ensure this case is appropriate for surgery by dermatologic surgeon, Agapito Barger MD. This interpretation was discussed with the patient. Referral photograph of the biopsy site was reviewed and verified with patient. Extensive discussion was performed with the patient regarding treatment options to include no treatment, chemotherapy, radiation therapy, and surgery, to include, whether Mohs Micrographic Surgery would be an appropriate treatment modality in this case. Discussed with patient surgical reconstruction options to include secondary intent, primary closure, skin flap, and skin graft. Risk Factors of Concern: Anticoagulant therapy: [ ] Artificial heart valve: [ ] Artificial joint within 2 years: [ ]Patient understands the risks and benefits and potential need for a flap or graft and would like to proceed with surgery at this time.Joseph protocol was followed in compliance with [facility] standards. Mohs Micrographic Surgeon operated in two distinct and integrated capacities as the surgeon and the pathologist. The areas was prepped with chlorhexidine. The tumor was visualized, compared against relevant records, and confirmed with the patient. The agreed upon area anesthetized with lidocaine 1% with epinephrine. Once anesthetized, the area was lightly curetted with a 3mm curette to better define tumor size. A 2mm rim of normal tissue was marked and an incision at a 45 degree angle following standard Mohs approach was performed and the specimen harvested as a microscopic controlled layer. Hemostasis was achieved with electrocautery. Estimated blood loss was 5mL.The specimen was oriented, chromacoded, mapped, and placed in 1 block. Each section was processed in the Mohs Laboratory using Mohs protocol and submitted for frozen section. Please see scanned [facility] map for appropriate use criteria score greater than or equal to 7 and pathology report. Frozen section analysis of the four quadrants showed the followin quadrants, 4 positive.Stage 2: Due to the positive margin(s), a second stage was performed. The areas was prepped with chlorhexidine. The tumor was visualized, compared against relevant records, and confirmed with the patient. The agreed upon area anesthetized with lidocaine 1% with epinephrine. Once anesthetized, the area was lightly curetted with a 3mm curette to better define tumor size. A 2mm rim of normal tissue was marked and an incision at a 45 degree angle following standard Mohs approach was performed and the specimen harvested as a microscopic controlled layer. Hemostasis was achieved with electrocautery. Estimated blood loss was 5mL.The specimen was oriented, chromacoded, mapped, and placed in 1 block. Each section was processed in the Mohs Laboratory using Mohs protocol and submitted for frozen section. Please see scanned Mohs map for appropriate use criteria score greater than or equal to 7 and pathology report. Frozen section analysis of the four quadrants showed the followin quadrants, 0 positive., A medially based transposition flap was drawn around the tumor site defect with sterile marking pen. The entire area was infiltrated with 1% Xylocaine with 1:100,000 Epinephrine. The margins were incised as drawn to the level of the subcutaneous fat with a #15 blade, and the excess tissue was removed. Hemostasis was maintained with electrocautery. The flap and the lateral margins of the resulting defect were undermined at the level of the subcutaneous fat with blunt and sharp dissection. The flap was then raised and transposed into place. The goldman points, the flap, and the secondary wounds were closed with deep buried subcutaneous sutures of 5.0 monocryl. The wound edges were re-approximated with 6.0 prolene. A sterile dressing was applied and full wound care instructions were given to the patient including handouts and emergency contact information. The patient left the room in good condition and was instructed to follow up in 1 week. Final size: 1.7 x 1.7 - 2.89 sq cm Next Appt Details 1 Week Reason: Provider Name:Agapito Barger, 11-08 11:30:00 AM, [address] [place] [address], [place], [place], [facility] [phone] Insurance Providers Payer Name Payer Address Payer Phone Insured Name Patient Relati onship to Insured Coverage Start Date Coverage End Date [employer] MEDICARE [employer] [address] [facility] [id number] JASVIR BELTRÁN self
--- OUTSIDE RECORDS SUMMARY | 2021-02-02 10:59 | CCD ---
Author Author [facility] Organization [facility] Address Unknown Phone Unavailable Care Team Providers Care Joint Yarner Name Role Phone Charlebois, A Betsy RPA C Unavailable Unavailable Charlebois, A Betsy RPA C Unavailable Unavailable Charlebois, A Betsy RPA C Unavailable Unavailable Charlebois, A Betsy RPA C Unavailable Unavailable Charlebois, A Betsy RPA C Unavailable Unavailable Charlebois, A Betsy RPA C Unavailable Unavailable Charlebois, A Betsy RPA C Unavailable Unavailable Charlebois, A Betsy RPA C Unavailable Unavailable Charlebois, A Betsy RPA C Unavailable Unavailable Charlebois, A Betsy RPA C Unavailable Unavailable Charlebois, A Betsy RPA C Unavailable Unavailable Charlebois, A Betsy RPA C Unavailable Unavailable Charlebois, A Betsy RPA C Unavailable Unavailable Charlebois, A Betsy RPA C Unavailable Unavailable Charlebois, A Betsy RPA C Unavailable Unavailable Charlebois, A Betsy RPA C Unavailable Unavailable Charlebois, A Betsy RPA C Unavailable Unavailable Charlebois, A Betsy RPA C Unavailable Unavailable Charlebois, A Betsy RPA C Unavailable Unavailable Charlebois, A Betsy RPA C Unavailable Unavailable Charlebois, A Betsy RPA C Unavailable Unavailable Charlebois, A Betsy RPA C Unavailable Unavailable Charlebois, A Betsy RPA C Unavailable Unavailable Charlebois, A Betsy RPA C Unavailable Unavailable Charlebois, A Betsy RPA C Unavailable Unavailable Charlebois, A Betsy RPA C Unavailable Unavailable Charlebois, A Betsy RPA C Unavailable Unavailable Charlebois, A Betsy RPA C Unavailable Unavailable Charlebois, A Betsy RPA C Unavailable Unavailable Charlebois, A Betsy RPA C Unavailable Unavailable Charlebois, A Betsy RPA C Unavailable Unavailable Charlebois, A Betsy RPA C Unavailable Unavailable Charlebois, A Betsy RPA C Unavailable Unavailable Lynch, Vianca Catherine PA Unavailable Unavailable Lynch, Vianca Catherine PA Unavailable Unavailable Lynch, Vianca Catherine PA Unavailable Unavailable Lynch, Vianca Catherine PA Unavailable Unavailable Lynch, Vianca Catherine PA Unavailable Unavailable Lynch, Vianca Catherine PA Unavailable Unavailable Lynch, Vianca Catherine PA Unavailable Unavailable Lynch, Vianca Catherine PA Unavailable Unavailable Lynch, Vianca Catherine PA Unavailable Unavailable Lynch, Vianca Catherine PA Unavailable Unavailable Lynch, Vianca Catherine PA Unavailable Unavailable Lynch, Vianca Catherine PA Unavailable Unavailable Lynch, Vianca Catherine PA Unavailable Unavailable Lynch, Vianca Catherine PA Unavailable Unavailable Lynch, Vianca Catherine PA Unavailable Unavailable Lynch, Vianca Catherine PA Unavailable Unavailable Lynch, Vianca Catherine PA Unavailable Unavailable Lynch, Vianca Catherine PA Unavailable Unavailable Lynch, Vianca Catherine PA Unavailable Unavailable Lynch, Vianca Catherine PA Unavailable Unavailable Lynch, Vianca Cahterine PA Unavailable Unavailable Lynch, Vianca Catherine PA Unavailable Unavailable Lynch, Vianca Catherine PA Unavailable Unavailable Lynch, Vianca Catherine PA Unavailable Unavailable Lynch, Vianca Catherine PA Unavailable Unavailable Lynch, Vianca Catherine PA Unavailable Unavailable Lynch, Vianca Catherine PA Unavailable Unavailable Lynch, Vianca Catherine PA Unavailable Unavailable Lynch, Vianca Catherine PA Unavailable Unavailable Lynch, Vianca Catherine PA Unavailable Unavailable Lynch, Vianca Catherine PA Unavailable Unavailable Lynch, Vianca Catherine PA Unavailable Unavailable Lynch, Vianca Catherine PA Unavailable Unavailable Lynch, Vianca Catherine PA Unavailable Unavailable Lynch, Vianca Catherine PA Unavailable Unavailable Lynch, Vianca Catherine PA Unavailable Unavailable Lynch, Vianca Catherine PA Unavailable Unavailable Lynch, Vianca Catherine PA Unavailable Unavailable Lynch, Vianca Catherine PA Unavailable Unavailable Lynch, Vianca Catherine PA Unavailable Unavailable Lynch, Vianca Catherine PA Unavailable Unavailable SyedVianca Catehrine PA Unavailable Unavailable SyedVianca Catherine PA Unavailable Unavailable SyedVianca Catherine PA Unavailable Unavailable SyedVianca Catherine PA Unavailable Unavailable LynchVianca Catherine PA Unavailable Unavailable LynchVainca Catherine PA Unavailable Unavailable LynchVianca Catherine PA Unavailable Unavailable LynchVianca gallo Catherine PA Unavailable Unavailable Brule, Nandini REAL ESTATE PARALEGAL Unavailable Unavailable Brule, Nandini REAL ESTATE PARALEGAL Unavailable Unavailable Brule, Nandini REAL ESTATE PARALEGAL Unavailable Unavailable Brule, Nandini REAL ESTATE PARALEGAL Unavailable Unavailable Brule, Nandini REAL ESTATE PARALEGAL Unavailable Unavailable Brule, Nandini REAL ESTATE PARALEGAL Unavailable Unavailable Brule, Nandini REAL ESTATE PARALEGAL Unavailable Unavailable Brule, Nandini REAL ESTATE PARALEGAL Unavailable Unavailable Brule, Nandini REAL ESTATE PARALEGAL Unavailable Unavailable Brule, Nandini REAL ESTATE PARALEGAL Unavailable Unavailable Brule, Nandini REAL ESTATE PARALEGAL Unavailable Unavailable Brule, Nandini REAL ESTATE PARALEGAL Unavailable Unavailable Brule, Nandini REAL ESTATE PARALEGAL Unavailable Unavailable Brule, Nandini REAL ESTATE PARALEGAL Unavailable Unavailable Brule, Nandini REAL ESTATE PARALEGAL Unavailable Unavailable Brule, Nandini REAL ESTATE PARALEGAL Unavailable Unavailable Brule, Nandini REAL ESTATE PARALEGAL Unavailable Unavailable Brule, Nandini REAL ESTATE PARALEGAL Unavailable Unavailable Brule, Nandini REAL ESTATE PARALEGAL Unavailable Unavailable Brule, Nandini REAL ESTATE PARALEGAL Unavailable Unavailable Brule, Nandini REAL ESTATE PARALEGAL Unavailable Unavailable Brule, Nandini REAL ESTATE PARALEGAL Unavailable Unavailable Brule, Nandini REAL ESTATE PARALEGAL Unavailable Unavailable Brule, Nandini REAL ESTATE PARALEGAL Unavailable Unavailable Brule, Nandini REAL ESTATE PARALEGAL Unavailable Unavailable Brule, Nandini REAL ESTATE PARALEGAL Unavailable Unavailable Brule, Nandini REAL ESTATE PARALEGAL Unavailable Unavailable Brule, Nandini REAL ESTATE PARALEGAL Unavailable Unavailable Brule, Nandini REAL ESTATE PARALEGAL Unavailable Unavailable Brule, Nandini REAL ESTATE PARALEGAL Unavailable Unavailable Brule, Nandini REAL ESTATE PARALEGAL Unavailable Unavailable Brule, Nandini REAL ESTATE PARALEGAL Unavailable Unavailable Brule, Lulu Sanchez REAL ESTATE PARALEGAL Unavailable Unavailable Brule, Lulu Sanchez REAL ESTATE PARALEGAL Unavailable Unavailable Brule, Lulu Sanchez REAL ESTATE PARALEGAL Unavailable Unavailable Brule, Lulu Sanchez REAL ESTATE PARALEGAL Unavailable Unavailable Re-disclosure Warning The records that you are about to access may contain information from federally-assisted alcohol or drug abuse programs. If such information is present, then the following federally mandated warning applies: This information has been disclosed to you from records protected by federal confidentiality rules (42 CFR part 2). The federal rules prohibit you from making any further disclosure of this information unless further disclosure is expressly permitted by the written consent of the person to whom it pertains or as otherwise permitted by 42 CFR part 2. A general authorization for the release of medical or other information is NOT sufficient for this purpose. The Federal rules restrict any use of the information to criminally investigate or prosecute any alcohol or drug abuse patient.The records that you are about to access may contain highly sensitive health information, the redisclosure of which is protected by Article 27-F of the [facility] Public Health law. If you continue you may have access to information: Regarding HIV / AIDS; Provided by facilities licensed or operated by the [facility] Office of Mental Health; or Provided by the [facility] Office for People With Developmental Disabilities. If such information is present, then the following [facility] mandated warning applies: This information has been disclosed to you from confidential records which are protected by state law. State law prohibits you from making any further disclosure of this information without the specific written consent of the person to whom it pertains, or as otherwise permitted by law. Any unauthorized further disclosure in violation of state law may result in a fine or fdc sentence or both. A general authorization for the release of medical or other information is NOT sufficient authorization for further disc losure. Family History Family Member Name Family Member Gender Family Member Status Date o f Status Description Data Source(s) Unknown Male Problem MEDENT ([facility]) Unknown Male Problem MEDENT ([facility]) Unknown Unknown Problem MEDENT ([facility]) Unknown Unknown Encounters Encounter Providers Location Date Indications Data Source(s ) [place] [address] [address] [address] 11/22/2020 12:00:00 AM EDT eCW1 ([facility] [place] [address] [address] 11/08/2020 12:00:00 AM EDT [facility] [place] [address] [address] 11/02/2020 12:00:00 AM EDT [facility]1 [facility] [place] [address] [address] [address] 11/01/2020 12:00:00 AM EDT [facility]CW1 [facility]) Outpatient Attender: Laura Mcgee [facility] Main Office 10/18/2020 10:00:00 AM EDT MEDENT ([facility]) Outpatient Attender: Betsy Avelar/Ramez/Abdulaziz serrano/Neena 08/30/2020 10:00:00 AM EDT MEDENT ([facility] Alisia martins, ) Outpatient Attender: Laura Mcgee [facility] Main Office 08/10/2020 01:15:00 PM EDT [facility]) Recurring Patient Referrer: Catherine DICKERSON 07/17/2020 02:20:50 PM EDT [facility] Unknown [address] [address] 06/09/2020 12:00:00 AM EST eCW1 ([facility] [place] [address] [address] 05/18/2020 12:00:00 AM EST [facility]1 [facility] [place] [address] [address] [address] 04/27/2020 12:00:00 AM EST [facility] [place] [address] [address] [address] 03/01/2020 12:00:00 AM EST [facility] [place] [address] [address] [address] 02/28/2020 12:00:00 AM EST eCW1 ([facility]) [place] [address] [address] 02/21/2020 12:00:00 AM EST eCW1 ([facility]) [place] [address] [address] 02/18/2020 12:00:00 AM EST eCW1 ([facility]) [place] [address] [address] [address] 01/24/2020 12:00:00 AM EDT eCW1 ([facility]) Unknown [address] [address] [address] 01/20/2020 12:00:00 AM EDT eCW1 ([facility]) Outpatient [address] [address] 01/17/2020 12:00:00 AM EDT eCW1 ([facility]) [facility] Aisha Chakraborty [address] [place] [address] 12/08/2019 12:00:00 AM EDT eCW1 ([facility]) [facility] Aisha Palmer [address] [place] [address] 12/06/2019 12:00:00 AM EDT eCW1 ([facility]) Immunizations Vaccine Date Status Description Data Source(s) COVID-19 VACCINE Moderna 06/20/2020 12:00:00 AM EST completed [place] Vaccine Series Complete: YESThis Data wa s Submitted to [facility] Via [facility]. COVID-19 VACCINE Moderna 05/19/2020 12:00:00 AM EST completed [place] Vaccine Series Complete: NOThis Data was Submitted to [facility] Via [employer]. Medications Medication Brand Name Start Date Product Form Dose Route Admi nistrative Instructions Pharmacy Instructions Status Indications Reaction Description Data Source(s) Cephalexin 500 MG Oral Capsule Cephalexin 500 MG 11/02/2020 12:00:0 0 AM EDT 1.0 {capsule} active Cephalexin 500 MG eCW1 ([facility]) Cephalexin 500 MG Oral Capsule Cephalexin 500 MG 11/02/2020 12:00:0 0 AM EDT 1.0 {capsule} active eCW1 ([facility]) Cephalexin 500 MG Oral Capsule Cephalexin 500 MG 11/02/2020 12:00:0 0 AM EDT 1.0 {capsule} active Cephalexin 500 MG eCW1 ([facility]) Cephalexin 500 MG Oral Capsule Cephalexin 500 MG 11/02/2020 12:00:0 0 AM EDT 1.0 {capsule} active Cephalexin 500 MG eCW1 ([facility]) Cephalexin 500 MG Oral Capsule Cephalexin 500 MG 11/02/2020 12:00:0 0 AM EDT 1.0 {capsule} active Cephalexin 500 MG eCW1 ([facility]) Suprep Bowel Prep Kit Suprep Bowel Prep Kit 08/30/2020 12:00:00 AM EDT active MEDENT ([facility] ) Magnesium Hydroxide 80 MG/ML Oral Suspension Milk Of Magnesi a 08/30/2020 12:00:00 AM EDT ORAL active M EDENT ([facility], ) Insurance Providers Payer name Policy type / Coverage type Policy ID Covered republican ID Covered republican's relationship to castellon Policy [place] Plan Information AETNA MEDICARE [id number] SP MEBPT [id number] Aetna Commercial [id number] Self [id number] Aetna Medicare F [id number] SELF MEBPT K7N AETNA MEDICARE [id number] SP MEBPT K7N AETNA MEDICARE O [id number] S MEBPT K7N AETNA MEDICARE [id number] SP MEBPT K7N ANSI-Medicare Part B [id number] ANSI-Medicare Part B [id number] ANSI-Medicare Part B [id number] ANSI-Medicare Part B [id number] ANSI-Medicare Part B [id number] ANSI-Medicare Part B [id number] ANSI-Medicare Part B [id number] ANSI-Medicare Part B [id number] ANSI-Medicare Part B [id number] ANSI-Medicare Part B [id number] ANSI-Medicare Part B [id number] ANSI-Medicare Part B [id number] ANSI-Medicare Part B [id number] ANSI-Medicare Part B [id number] ANSI-Medicare Part B [id number] ANSI-Medicare Part B [id number] ANSI-Medicare Part B [id number] ANSI-Medicare Part B [id number] ANSI-Medicare Part B [id number] ANSI-Medicare Part B [id number] ANSI-Medicare Part B [id number] ANSI-Medicare Part B [id number] ANSI-Medicare Part B [id number] ANS-Medicare Part B [id number] ANSI-Medicare Part B [id number] ANS-Medicare Part B [id number] Aetna Medicare [facility] Part B [id number] Self [id number] Aetna MCR Supp Ppo Commercial [id number] Self [id number] [employer] Medicare Commercial [id number] Self [id number] Aetna MCR Supp Ppo Commercial [id number] Self [id number] Aet Medicare Medigap Part B [id number] Self [id number] ANSI-Medicare Part B [id number] ANSI-Medicare Part B [id number] ANSI-Medicare Part B [id number] ANSI-Medicare Part B [id number] ANSI-Medicare Part B [id number] ANSI-Medicare Part B [id number] ANSI-Medicare Part B [id number] ANSI-Medicare Part B [id number] AETNA MEDICARE O [id number] S MEBPT K7N AETNA MEDICARE O [id number] S MEBPT K7N Aetna Ppo/Pos/Nap/MC Commercial [id number] Self [id number] MEDICARE COMPLETE [id number] SP [id number] [facility] MEDICARE [place] [id number] S [id number] MEDICARE COMPLETE [id number] SP [id number] [employer] Medicare Commercial [id number] Self MEDICARE COMPLETE[facility] O [id number] S [id number] [facility] ([facility]) Commercial [id number] Self SELF PAY SP [id number] S [id number] [facility] Commercial [id number] Self [facility] P [id number] S [id number] RAFI DISCT 80% OF CAP CHGS SP UNAVAILABLE S UNAVAILABLE AETNA MEDICARE [id number] SP MEBPT K7N [id number] AETNA MEDICARE [id number] SP MEBPT K7N AETNA MEDICARE O [id number] S MEBPT [id number] Problems, Conditions, and Diagnoses Code Display Name Description Problem Type Effective Dates Data Source(s) C44.311 [id number] Basal cell carcinoma (BCC) of left side o f nose Problem 11/01/2020 12:00:00 AM EDT eCW1 ([facility]) N40.0 [id number] Benign prostatic hyp erplasia, unspecified whether lower urinary tract symptoms present Problem 03/08/2020 12:00:00 AM EST eCW1 ([facility]) Surgeries/Procedures Procedure Description Date Indications Data Source(s) 11/08/2020 12:00:00 AM EDT e CW1 ([facility]) Med: Derm Lidocaine with Epinephrine Inj ection 1% with 2 ml sodium bicarbonate Intradermally to marked areas 11/01/2020 12:00:00 AM EDT eCW1 ([facility]) OFFICE OUTPATIENT VISIT 25 MINUTES 10/18/2020 12:00:00 AM EDT MEDENT ([facility]) EXCISION MAL LESION TRUNK/ARM/LEG 3.1-4.0 CM 12:00:00 AM EDT MEDENT ([facility]) EXCISION MALIGNANT LESION TRUNK/ARM/LEG >4.0 CM 2020 12:00:00 AM EDT MEDENT ([facility]) Shave Biopsy Of Skin, Single Lesion 08/10/2020 12:00:0 0 AM EDT MEDENT ([facility]) Each Separate/Additional Lesion 08/10/2020 12:00:00 AM EDT MEDENT ([facility]) OFFICE OUTPATIENT NEW 45 MINUTES 08/10/2020 12:00:00 A M EDT MEDENT ([facility]) Results ID Date Data Source [id number] 10/18/2020 10:24:00 AM EDT MEDENT ([facility]) Name Value Range Interpretation Code Description Data Alayna rce(s) Supporting Document(s) Bacterial biochemical profile [Identifier] in Isolate by Culture Laboratory test result MEDENT [facility] ID Date Data Source [id number] 10/05/2020 11:34:00 AM EDT MEDENT ([facility]) Name Value Range Interpretation Code Description Data Alayna rce(s) Supporting Document(s) Laboratory test finding (navigational concept) Laboratory test result MEDENT ([facility]) A. No further treatment necessary B. N o further treatment necessary Laboratory test finding (navigational concept) Laboratory test result MEDENT ([facility]) A. No further treatment necessary B. N o further treatment necessary ID Date Data Source [id number] 10/05/2020 11:34:00 AM EDT MEDENT ([facility]) Name Value Range Interpretation Code Description Data Alayna rce(s) Supporting Document(s) Laboratory test finding (navigational concept) Laboratory test result MEDENT ([facility]) ID Date Data Source [id number] 08/10/2020 02:05:00 PM EDT MEDENT ([facility]) Name Value Range Interpretation Code Description Data Alayna rce(s) Supporting Document(s) Laboratory test finding (navigational concept) Laboratory test result MEDENT ([facility]) A. Excise with BH 6-[address] Denita Barnett Excise with BH 6-24 D. No further treatment necessary letter sent, awaiting appt LW 08/22/20 photo emailed, letter sent, awaiting appt LW 08/23/20 pt is scheduled 11/01/20, pt is aware LW 09/06/20 Laboratory test finding (navigational concept) Laboratory test result MEDENT ([facility]) A. Excise with BH 6-[address] Denita Barnett Excise with BH 6-24 D. No further treatment necessary letter sent, awaiting appt LW 08/22/20 photo emailed, letter sent, awaiting appt LW 08/23/20 pt is scheduled 11/01/20, pt is aware LW 09/06/20 Procedure Social History Code Duration Value Status Description Data Source(s ) Smoking 11/01/2020 12:00:00 AM EDT Former Smoker completed Former Smoker eCW1 ([facility]) Smoking 11/01/2020 12:00:00 AM EDT Former Smoker completed Former Smoker eCW1 ([facility]) Smoking 11/01/2020 12:00:00 AM EDT Former Smoker completed Former Smoker eCW1 ([facility]) Smoking 11/01/2020 12:00:00 AM EDT Former Smoker completed Former Smoker eCW1 ([facility]) Smoking 11/01/2020 12:00:00 AM EDT Former Smoker completed Former Smoker eCW1 ([facility]) Smoking 02/28/2020 12:00:00 AM EST Former Smoker completed Former Smoker eCW1 ([facility]) Smoking 02/28/2020 12:00:00 AM EST Former Smoker completed Former Smoker eCW1 ([facility]) Smoking 02/28/2020 12:00:00 AM EST Former Smoker completed Former Smoker eCW1 ([facility]) Smoking 02/28/2020 12:00:00 AM EST Former Smoker completed Former Smoker eCW1 ([facility]) Smoking 02/28/2020 12:00:00 AM EST Former Smoker completed Former Smoker eCW1 ([facility]) Smoking 02/28/2020 12:00:00 AM EST Former Smoker completed Former Smoker eCW1 ([facility]) Smoking 01/17/2020 12:00:00 AM EDT Former Smoker completed Former Smoker eCW1 ([facility]) Smoking 01/17/2020 12:00:00 AM EDT Former Smoker completed Former Smoker eCW1 ([facility]) Smoking 01/17/2020 12:00:00 AM EDT Former Smoker completed Former Smoker eCW1 ([facility]) Smoking 01/17/2020 12:00:00 AM EDT Former Smoker completed Former Smoker eCW1 ([facility]) Vital Signs ID Date Data Source [id number] Name Value Range Interpretation Code Description Data Source(s) Body weight 205 [lb_av] 205 [lb_av] eCW1 ([facility]) Body height 70 [in_i] 70 [in_i] W1 ([facility]) Body mass index (BMI) [Ratio] 29.41 kg/m2 29.41 kg/m2 eCW1 ([facility]) Systolic blood pressure 138 mm[Hg] 138 mm[Hg] e CW1 ([facility]) Diastolic blood pressure 64 mm[Hg] 64 mm[Hg] eCW1 ([facility]) Systolic blood pressure 112 mm[Hg] 112 mm[Hg] M EDENT ([facility]) Diastolic blood pressure 72 mm[Hg] 72 mm[Hg] MEDENT ([facility]) Body weight 205.00 [lb_av] 205.00 [lb_av] MEDEN T ([facility]) Respiratory rate 18 /min 18 /min [facility] Systolic blood pressure 108 mm[Hg] 108 mm[Hg] M EDENT ([facility]) Diastolic blood pressure 72 mm[Hg] 72 mm[Hg] [facility] Body surface area Derived from formula 2.11 m2 2.11 m2 [facility] ([facility]) Body height 70 [in_i] 70 [in_i] [facility] ([facility]) 5'10" Body weight 205.00 [lb_av] 205.00 [lb_av] MEDEN T ([facility]) Body mass index (BMI) [Ratio] 29.4 kg/m2 29.4 k g/m2 [facility] ([facility]) [place] body weight 166 [lb_av] 166 [lb_av] MEDEN T ([facility]) Body weight 92.988 kg 92.988 kg [facility] ([facility]) Diastolic blood pressure 80 mm[Hg] 80 mm[Hg] MEDENT ([facility]) Body weight 210.00 [lb_av] 210.00 [lb_av] MEDEN T ([facility]) Respiratory rate 20 /min 20 /min MEDENT ( [facility]) Systolic blood pressure 130 mm[Hg] 130 mm[Hg] M EDENT ([facility]) Systolic blood pressure 120 mm[Hg] 120 mm[Hg] e CW1 ([facility]) Diastolic blood pressure 58 mm[Hg] 58 mm[Hg] eCW1 ([facility]) Body weight 201.6 [lb_av] 201.6 [lb_av] eCW1 ([facility]) Body weight 91.44 kg 91.44 kg eCW1 ([facility]) Body height 70 [in_i] 70 [in_i] eCW1 ([facility]) Body mass index (BMI) [Ratio] 28.92 kg/m2 28.92 kg/m2 eCW1 ([facility]) Heart rate 83 /min 83 /min eCW1 ([facility]) Respiratory rate 18 /min 18 /min eCW1 ([facility]) Body temperature 97.4 [degF] 97.4 [degF] eCW1 ( [facility]) Body weight 201 [lb_av] 201 [lb_av] eCW1 ([facility]) Body height 70 [in_i] 70 [in_i] eCW1 ([facility]) Body mass index (BMI) [Ratio] 28.84 kg/m2 28.84 kg/m2 eCW1 ([facility]) Heart rate 78 /min 78 /min eCW1 ([facility]) Respiratory rate 16 /min 16 /min eCW1 ([facility]) Body temperature [degF] eCW1 ([facility]) Systolic blood pressure 144 mm[Hg] 144 mm[Hg] e CW1 ([facility]) Diastolic blood pressure 74 mm[Hg] 74 mm[Hg] eCW1 ([facility]) Patient Treatment Plan of Care Planned Activity Planned Date Details Description Data Source (s) Cephalexin 500 MG Oral Capsule 11/02/2020 12:00:00 AM EDT eCW1 ([facility]) Cephalexin 500 MG Oral Capsule 11/02/2020 12:00:00 AM EDT eCW1 ([facility]) Cephalexin 500 MG Oral Capsule 11/02/2020 12:00:00 AM EDT eCW1 ([facility]) Cephalexin 500 MG Oral Capsule 11/02/2020 12:00:00 AM EDT eCW1 ([facility]) Cephalexin 500 MG Oral Capsule 11/02/2020 12:00:00 AM EDT eCW1 ([facility])
[2021-02-02] MEDS ORDERED: LIDOCAINE 2% 100MG/5ML SDV (FOR ANES.) As Ordered ONE (12:17)
[2021-02-02] MEDS ORDERED: propofoL 200 MG/20 ML VIAL As Ordered ONE ×2 (12:17→12:34)
--- NOTE | 2021-02-02 12:38 | ROOR ---
Patient Name: Rahul Gutierrez Procedure Date: 02/02/2021 12:13 PM Date of : 1955 Age: 66 Room: [facility] Gender: Male Note Status: Finalized Procedure: Colonoscopy Indications: High risk colon cancer surveillance: Personal history of colonic polyps, Last colonoscopy: March 2016 Providers: Jovany Chaudhary MD Referring MD: TUAN Kan [id number] Requesting Provider: Medicines: Monitored Anesthesia Care Complications: No immediate complications. Procedure: Pre-Anesthesia Assessment: - The heart rate, respiratory rate, oxygen saturations, blood pressure, adequacy of pulmonary ventilation, and response to care were monitored throughout the procedure. The Colonoscope was introduced through the anus and advanced to the terminal ileum, with identification of the appendiceal orifice and IC valve. The colonoscopy was performed without difficulty. The patient tolerated the procedure well. The quality of the bowel preparation was good. Findings: The perianal and digital rectal examinations were normal. Two sessile polyps were found in the hepatic flexure. The polyps were diminutive in size. These polyps were removed with a jumbo cold forceps. Resection and retrieval were complete. Retroflexion in the right colon was performed. Mild sigmoid diverticulosis and moderate internal hemorrhoids. The exam was otherwise without abnormality on direct and retroflexion views. Impression: - Two diminutive polyps at the hepatic flexure, removed with a jumbo cold forceps. Resected and retrieved. - Mild sigmoid diverticulosis and moderate internal hemorrhoids. - The examination was otherwise normal on direct and retroflexion views. Recommendation: - Repeat colonoscopy in 5 years for surveillance. Procedure Code(s): --- Professional --- 37724, Colonoscopy, flexible; with biopsy, single or multiple Diagnosis Code(s): --- Professional --- K63.5, Polyp of colon Z86.010, Personal history of colonic polyps CPT copyright 2019 [employer]. All rights reserved. The codes documented in this report are preliminary and upon quality control engineer review may be revised to meet current compliance requirements. Jovany Chaudhary MD Jovany Chaudhary MD 02/02/2021 12:38:18 PM Electronically signed by Jovany Chaudhary MD Number of Addenda: 0 Note Initiated On: 02/02/2021 12:13 PM Estimated Blood Loss: Estimated blood loss: none.
[2021-02-02 13:05] VITALS: BP 131/66
== END 2021-02-02 13:17 | disposition home or self-care (01) ==
LOC: M OPP 10:51
PROVIDERS: ATTEND Internal Medicine Gastroenterology
DX: Z12.11 Encounter for screening for malignant neoplasm of colon (principal); Z86.010 Personal history of colon polyps; D12.3 Benign neoplasm of transverse colon; K57.30 Diverticulosis of large intestine without perforation or abscess without bleeding; K64.8 Other hemorrhoids; Z79.82 Long term (current) use of aspirin; Z79.899 Other long term (current) drug therapy

== ENCOUNTER → 2021-10-25 | Outpatient (REF) | payer MEDICARE ==
[~2021-10-25] MED LIST changes: -LISI-898 PO; +LISI5TAB11 PO; -NS 1,000 ML IV ONE
[2021-10-25 16:16] LABS: BASO # 0.1 10^3/uL (0.0-0.2); BASO % 0.5 % (0.0-1.0); EOS # 0.4 10^3/uL (0.0-0.5); EOS % 3.3 % (0.0-3.0); HEMATOCRIT 49.1 % (42.0-52.0); HEMOGLOBIN 16.5 g/dl (13.5-17.5); LYMPH # 2.7 10^3/uL (1.5-5.0); LYMPH % 23.3 % (24.0-44.0); MEAN CORPUSCULAR HGB CONC 33.6 g/dl (32.0-36.5); MEAN CORPUSCULAR VOLUME 95.3 fl (80.0-96.0); MONO # 0.8 10^3/uL (0.0-0.8); MONO % 6.8 % (2.0-8.0); NEUTROPHILS # 7.6 10^3/uL (1.5-8.5); NEUTROPHILS % 65.7 % (36.0-66.0); PLATELET COUNT, AUTOMATED 304 10^3/uL (150-450); RED BLOOD COUNT 5.15 10^6/uL (4.30-6.10); WHITE BLOOD COUNT 11.6 10^3/uL (4.0-10.0)
[2021-10-25 16:57] LABS: ALBUMIN 3.6 GM/DL (3.2-5.2); ALT/SGPT 24 U/L (12-78); BILIRUBIN,TOTAL 0.8 MG/DL (0.2-1.0); BLOOD UREA NITROGEN 12 MG/DL (7-18); CALCIUM LEVEL 9.4 MG/DL (8.8-10.2); CARBON DIOXIDE LEVEL 29 MEQ/L (21-32); CHLORIDE LEVEL 105 MEQ/L (98-107); CHOLESTEROL LEVEL 137 MG/DL (<200); CHOLESTEROL RISK RATIO 4.566 (<5); CREATININE FOR GFR 0.92 MG/DL (0.70-1.30); FREE T4 1.25 NG/DL (0.76-1.46); GLOMERULAR FILTRATION RATE > 60.0 (>49); GLUCOSE, FASTING 166 MG/DL (70-100); HDL CHOLESTEROL 30 MG/DL (>40); LDL CHOLESTEROL 44 MG/DL (<100); NON-HDL-C 107 MG/DL; POTASSIUM SERUM 3.9 MEQ/L (3.5-5.1); SODIUM LEVEL 138 MEQ/L (136-145); TOTAL PROTEIN 6.9 GM/DL (6.4-8.2); TRIGLYCERIDES LEVEL 315 MG/DL (<150)
[2021-10-25 17:20] LABS: MALB URINE SIEMENS 65.1 MG/L
[2021-10-25 18:15] LABS: HEMOGLOBIN A1c 6.3 %
[2021-10-25 19:02] LABS: TOTAL 25(OH) VITAMIN D 26.5 NG/ML (30.0-100.0)
== END ==
LOC: M SFHCCAPE 07:12
PROVIDERS: ATTEND Physician Assistant
DX: Z00.00 Encounter for general adult medical examination without abnormal findings (principal); Z79.899 Other long term (current) drug therapy

== ENCOUNTER → 2021-10-29 | Outpatient (CLI) | payer MEDICARE | LOC: M RAD 08:06 | PROVIDERS: ATTEND Physician Assistant | DX: Z12.2 Encounter for screening for malignant neoplasm of respiratory organs (principal); Z87.891 Personal history of nicotine dependence ==

== ENCOUNTER → 2022-08-02 | Outpatient (CLI) | payer MEDICARE ==
[2022-08-02 10:46] LABS: BLOOD UREA NITROGEN 19 MG/DL (9-23); CALCIUM LEVEL 9.5 MG/DL (8.3-10.6); CARBON DIOXIDE LEVEL 27 MMOL/L (20-31); CHLORIDE LEVEL 106 MMOL/L (98-107); CREATININE FOR GFR 0.82 MG/DL (0.70-1.30); GLOMERULAR FILTRATION RATE > 60.0 (>49); GLUCOSE, FASTING 113 MG/DL (74-106); POTASSIUM SERUM 4.1 MMOL/L (3.5-5.1); SODIUM LEVEL 139 MMOL/L (136-145)
== END ==
LOC: M LAB 09:54
PROVIDERS: ATTEND Internal Medicine Cardiovascular Disease
DX: R06.02 Shortness of breath (principal); I10 Essential (primary) hypertension

== ENCOUNTER → 2022-08-16 | Outpatient (CLI) | payer MEDICARE | LOC: M RAD 08:47 | PROVIDERS: ATTEND Physician Assistant | DX: Z12.2 Encounter for screening for malignant neoplasm of respiratory organs (principal); F17.211 Nicotine dependence, cigarettes, in remission; J43.9 Emphysema, unspecified; J84.10 Pulmonary fibrosis, unspecified ==

== ENCOUNTER → 2022-08-27 | Outpatient (REF) | payer MEDICARE ==
[2022-08-27 18:45] LABS: BLOOD UREA NITROGEN 21 MG/DL (9-23); CALCIUM LEVEL 8.9 MG/DL (8.3-10.6); CARBON DIOXIDE LEVEL 27 MMOL/L (20-31); CHLORIDE LEVEL 102 MMOL/L (98-107); CREATININE FOR GFR 0.96 MG/DL (0.70-1.30); GLOMERULAR FILTRATION RATE > 60.0 (>49); GLUCOSE, FASTING 163 MG/DL (74-106); SODIUM LEVEL 139 MMOL/L (136-145)
== END ==
LOC: M LABDRWCV 17:08
PROVIDERS: ATTEND Internal Medicine Endocrinology, Diabetes & Metabolism
DX: E11.65 Type 2 diabetes mellitus with hyperglycemia (principal)

== ENCOUNTER → 2022-09-12 | Outpatient (REF) | payer MEDICARE ==
[2022-09-12 18:09] LABS: BASO % 0.3 % (0.0-1.0); EOS # 0.3 10^3/uL (0.0-0.5); EOS % 2.7 % (0.0-3.0); HEMATOCRIT 48.9 % (42.0-52.0); HEMOGLOBIN 15.8 g/dl (13.5-17.5); LYMPH # 2.3 10^3/uL (1.5-5.0); LYMPH % 23.9 % (24.0-44.0); MEAN CORPUSCULAR HEMOGLOBIN 31.6 pg (27.0-33.0); MEAN CORPUSCULAR HGB CONC 32.3 g/dl (32.0-36.5); MEAN CORPUSCULAR VOLUME 97.8 fl (80.0-96.0); MONO # 0.7 10^3/uL (0.0-0.8); MONO % 7.6 % (2.0-8.0); NEUTROPHILS # 6.2 10^3/uL (1.5-8.5); NEUTROPHILS % 65.2 % (36.0-66.0); PLATELET COUNT, AUTOMATED 283 10^3/uL (150-450); WHITE BLOOD COUNT 9.5 10^3/uL (4.0-10.0)
[2022-09-12 18:34] LABS: ALKALINE PHOSPHATASE 65 U/L (46-116); ALT/SGPT 21 U/L (7.0-40); AST/SGOT 16 U/L (<34); BILIRUBIN,TOTAL 0.6 MG/DL (0.3-1.2); BLOOD UREA NITROGEN 21 MG/DL (9-23); CALCIUM LEVEL 9.2 MG/DL (8.3-10.6); CARBON DIOXIDE LEVEL 28 MMOL/L (20-31); CHLORIDE LEVEL 102 MMOL/L (98-107); CHOLESTEROL LEVEL 105 MG/DL (<200); CHOLESTEROL RISK RATIO 3.34 (<5); CREATININE FOR GFR 0.98 MG/DL (0.70-1.30); GLOMERULAR FILTRATION RATE > 60.0 (>49); GLUCOSE, FASTING 135 MG/DL (74-106); HDL CHOLESTEROL 31.4 MG/DL (>40); LDL CHOLESTEROL 35.8 MG/DL (<100); NON-HDL-C 73.6 MG/DL; POTASSIUM SERUM 4.2 MMOL/L (3.5-5.1); SODIUM LEVEL 139 MMOL/L (136-145); TOTAL PROTEIN 6.8 G/DL (5.7-8.2); TRIGLYCERIDES LEVEL 189 MG/DL (<150)
[2022-09-12 18:37] LABS: TOTAL 25(OH) VITAMIN D 66.6 NG/ML (20.0-100.0)
[2022-09-12 18:38] LABS: HEMOGLOBIN A1c 5.8 % (4.0-6.0)
== END ==
LOC: M SFHCCAPE 07:35
PROVIDERS: ATTEND Physician Assistant
DX: Z00.00 Encounter for general adult medical examination without abnormal findings (principal); R73.09 Other abnormal glucose; E55.9 Vitamin D deficiency, unspecified; Z79.899 Other long term (current) drug therapy
CPT/HCPCS: 80053; 80061; 82306; 83036; 85025; G0103

== ENCOUNTER → 2023-03-20 | Outpatient (REF) | payer MEDICARE ==
[~2023-03-20] MED LIST changes: -ROSU20TA5 PO; +ROSU20TA61 PO
[2023-03-20 18:44] LABS: BASO # 0.1 10^3/uL (0.0-0.2); BASO % 0.6 % (0.0-1.0); EOS # 0.4 10^3/uL (0.0-0.5); EOS % 3.4 % (0.0-3.0); HEMATOCRIT 51.6 % (42.0-52.0); HEMOGLOBIN 16.9 g/dl (13.5-17.5); LYMPH # 2.6 10^3/uL (1.5-5.0); LYMPH % 22.9 % (24.0-44.0); MEAN CORPUSCULAR HEMOGLOBIN 31.7 pg (27.0-33.0); MEAN CORPUSCULAR HGB CONC 32.8 g/dl (32.0-36.5); MEAN CORPUSCULAR VOLUME 96.8 fl (80.0-96.0); MONO # 0.7 10^3/uL (0.0-0.8); MONO % 6.3 % (2.0-8.0); NEUTROPHILS # 7.5 10^3/uL (1.5-8.5); NEUTROPHILS % 66.4 % (36.0-66.0); PLATELET COUNT, AUTOMATED 308 10^3/uL (150-450); RED BLOOD COUNT 5.33 10^6/uL (4.30-6.10); WHITE BLOOD COUNT 11.3 10^3/uL (4.0-10.0)
[2023-03-20 19:03] LABS: HEMOGLOBIN A1c 6.2 % (4.0-6.0)
[2023-03-20 19:18] LABS: ALBUMIN 3.7 G/DL (3.2-5.2); ALKALINE PHOSPHATASE 81 U/L (46-116); ALT/SGPT 23 U/L (7.0-40); AST/SGOT 15 U/L (<34); BILIRUBIN,TOTAL 0.6 MG/DL (0.3-1.2); BLOOD UREA NITROGEN 18 MG/DL (9-23); CALCIUM LEVEL 9.4 MG/DL (8.3-10.6); CARBON DIOXIDE LEVEL 28 MMOL/L (20-31); CHLORIDE LEVEL 102 MMOL/L (98-107); CREATININE FOR GFR 0.76 MG/DL (0.70-1.30); GLOMERULAR FILTRATION RATE > 60.0 (>42); GLUCOSE, FASTING 150 MG/DL (74-106); SODIUM LEVEL 139 MMOL/L (136-145)
[2023-03-20 19:19] LABS: THYROID STIMULATING HORMONE 2.231 uIU/ML (0.55-4.78)
[2023-03-20 19:20] LABS: FREE T4 1.14 NG/DL (0.89-1.76)
== END ==
LOC: M SFHCCAPE 07:26
PROVIDERS: ATTEND Physician Assistant Medical
DX: E03.9 Hypothyroidism, unspecified (principal); K21.9 Gastro-esophageal reflux disease without esophagitis; I10 Essential (primary) hypertension; R73.01 Impaired fasting glucose

== ENCOUNTER → 2023-09-18 | Outpatient (REF) | payer MEDICARE ==
[~2023-09-18] MED LIST changes: +FLUO-365 PO; -FLUO20CA22 PO
[2023-09-18 17:18] LABS: BASO % 0.5 % (0.0-1.0); EOS # 0.2 10^3/uL (0.0-0.5); EOS % 1.9 % (0.0-3.0); HEMATOCRIT 49.4 % (42.0-52.0); HEMOGLOBIN 16.2 g/dl (13.5-17.5); LYMPH # 1.7 10^3/uL (1.5-5.0); LYMPH % 19.3 % (24.0-44.0); MEAN CORPUSCULAR HEMOGLOBIN 31.6 pg (27.0-33.0); MEAN CORPUSCULAR HGB CONC 32.8 g/dl (32.0-36.5); MEAN CORPUSCULAR VOLUME 96.5 fl (80.0-96.0); MONO # 0.7 10^3/uL (0.0-0.8); MONO % 8.3 % (2.0-8.0); NEUTROPHILS # 6.1 10^3/uL (1.5-8.5); NEUTROPHILS % 69.5 % (36.0-66.0); PLATELET COUNT, AUTOMATED 283 10^3/uL (150-450); RED BLOOD COUNT 5.12 10^6/uL (4.30-6.10); WHITE BLOOD COUNT 8.8 10^3/uL (4.0-10.0)
[2023-09-18 17:36] LABS: CREATININE, URINE 124.9 MG/DL; MAU/CREAT RATIO 3.2 MCG/MG (0.0-30.0)
[2023-09-18 17:47] LABS: ALBUMIN 3.8 G/DL (3.2-5.2); ALKALINE PHOSPHATASE 75 U/L (46-116); ALT/SGPT 20 U/L (7.0-40); AST/SGOT 16 U/L (<34); BILIRUBIN,TOTAL 0.6 MG/DL (0.3-1.2); BLOOD UREA NITROGEN 15 MG/DL (9-23); CALCIUM LEVEL 9.9 MG/DL (8.3-10.6); CARBON DIOXIDE LEVEL 29 MMOL/L (20-31); CHLORIDE LEVEL 104 MMOL/L (98-107); CHOLESTEROL LEVEL 119 MG/DL (<200); CHOLESTEROL RISK RATIO 3.95 (<5); CREATININE FOR GFR 0.81 MG/DL (0.70-1.30); FREE T4 1.12 NG/DL (0.89-1.76); GLOMERULAR FILTRATION RATE > 60.0 (>42); GLUCOSE, FASTING 149 MG/DL (74-106); HDL CHOLESTEROL 30.1 MG/DL (>40); LDL CHOLESTEROL 44.3 MG/DL (<100); NON-HDL-C 88.9 MG/DL; POTASSIUM SERUM 4.5 MMOL/L (3.5-5.1); PSA SCREENING 2.24 NG/ML (< 4.00); SODIUM LEVEL 139 MMOL/L (136-145); THYROID STIMULATING HORMONE 1.559 uIU/ML (0.55-4.78); TOTAL PROTEIN 6.8 G/DL (5.7-8.2); TRIGLYCERIDES LEVEL 223 MG/DL (<150)
[2023-09-18 18:34] LABS: HEMOGLOBIN A1c 6.2 % (4.0-6.0)
== END ==
LOC: M SFHCCAPE 07:11
PROVIDERS: ATTEND Physician Assistant Medical
DX: E11.9 Type 2 diabetes mellitus without complications (principal); N40.0 Benign prostatic hyperplasia without lower urinary tract symptoms; E03.9 Hypothyroidism, unspecified; K21.9 Gastro-esophageal reflux disease without esophagitis; E78.5 Hyperlipidemia, unspecified; Z12.5 Encounter for screening for malignant neoplasm of prostate
CPT/HCPCS: 80053; 80061; 82043; 83036; 84439; 84443; 85025; G0103

== ENCOUNTER → 2024-01-27 | Outpatient (CLI) | payer MEDICARE ==
[~2024-01-27] MED LIST changes: +GABA-1490 PO; -GABA600T4 PO; -ROSU20TA61 PO; +ROSU20TA86 PO
== END ==
LOC: M RAD 08:04
PROVIDERS: ATTEND Physician Assistant Medical
DX: Z12.2 Encounter for screening for malignant neoplasm of respiratory organs (principal); F17.211 Nicotine dependence, cigarettes, in remission; R91.8 Other nonspecific abnormal finding of lung field; I25.10 Atherosclerotic heart disease of native coronary artery without angina pectoris; J98.4 Other disorders of lung

== ENCOUNTER → 2024-11-03 | Outpatient (REF) | payer MEDICARE ==
[~2024-11-03] MED LIST changes: -FLOM0.4C39 PO; +TAMS-18 PO
[2024-11-03 17:24] LABS: APPEARANCE, URINE CLEAR (CLEAR); BACTERIA, URINE AUTO NEGATIVE (NEGATIVE); BILIRUBIN, URINE AUTO NEGATIVE (NEGATIVE); BLOOD, URINE BLOOD NEGATIVE (NEGATIVE); GLUCOSE, URINE (UA) AUTO 3+ mg/dL (NEGATIVE); KETONE, URINE AUTO NEGATIVE (NEGATIVE); LEUKOCYTE ESTERASE, URINE AUTO NEGATIVE (NEGATIVE); NITRITE, URINE AUTO NEGATIVE (NEGATIVE); PROTEIN, URINE AUTO NEGATIVE (NEGATIVE); RBC, URINE AUTO 0 /HPF (0-3); SPECIFIC GRAVITY URINE AUTO 1.024 (1.002-1.035); SQUAMOUS EPITHELIAL CELL UR AU 0 /HPF (0-6); UROBILINOGEN, URINE AUTO 0.2 mg/dL (0.0-2.0); WBC, URINE AUTO 0 /HPF (0-3)
== END ==
LOC: M SMT 16:49
PROVIDERS: ATTEND Urology
DX: R39.9 Unspecified symptoms and signs involving the genitourinary system (principal)

== ENCOUNTER → 2024-12-14 | Outpatient (REF) | payer MEDICARE ==
[2024-12-14 18:33] LABS: BASO # 0.0 10^3/uL (0.0-0.2); BASO % 0.3 % (0.0-1.0); EOS # 0.2 10^3/uL (0.0-0.5); EOS % 1.7 % (0.0-3.0); LYMPH # 1.9 10^3/uL (1.5-5.0); LYMPH % 19.8 % (24.0-44.0); MONO # 0.6 10^3/uL (0.0-0.8); MONO % 6.7 % (2.0-8.0); NEUTROPHILS # 6.8 10^3/uL (1.5-8.5); NEUTROPHILS % 71.1 % (36.0-66.0); PLATELET COUNT, AUTOMATED 320 10^3/uL (150-450)
[2024-12-14 18:40] LABS: FREE T4 1.41 NG/DL (0.89-1.76)
[2024-12-14 18:41] LABS: VITAMIN B12 LEVEL 592 PG/ML (211-911)
[2024-12-14 18:43] LABS: ALT/SGPT 22 U/L (7.0-40); AST/SGOT 23 U/L (<34); CALCIUM LEVEL 10.3 MG/DL (8.3-10.6); CARBON DIOXIDE LEVEL 28 MMOL/L (20-31); CHLORIDE LEVEL 103 MMOL/L (98-107); CHOLESTEROL LEVEL 143 MG/DL (<200); CHOLESTEROL RISK RATIO 3.62 (<5); CREATININE FOR GFR 0.92 MG/DL (0.70-1.30); GLOMERULAR FILTRATION RATE 88.9 (>42); LDL CHOLESTEROL 53.5 MG/DL (<100); NON-HDL-C 103.5 MG/DL; POTASSIUM SERUM 3.6 MMOL/L (3.5-5.1); SODIUM LEVEL 141 MMOL/L (136-145); TRIGLYCERIDES LEVEL 250 MG/DL (<150)
[2024-12-14 18:55] LABS: ESTIMATED AVERAGE GLUCOSE 143.0 MG/DL (60-110)
[2024-12-14 19:00] LABS: CREATININE, URINE 118.5 MG/DL; MALB URINE SIEMENS 11.0 MG/L; MAU/CREAT RATIO 9.2 MCG/MG (0.0-30.0)
== END ==
LOC: M SFHCCAPE 07:22
PROVIDERS: ATTEND Physician Assistant Medical
DX: E11.9 Type 2 diabetes mellitus without complications (principal); E03.9 Hypothyroidism, unspecified; K21.9 Gastro-esophageal reflux disease without esophagitis; F41.9 Anxiety disorder, unspecified